=== PATIENT | male | born 1950 | race Asian ===

== ENCOUNTER 2023-06-24 09:36 | Emergency (ER) | payer MEDICARE ==
[~2023-06-24] VITALS: Ht 165.1 cm; Wt 75.0 kg
[2023-06-24 09:41] VITALS: TEMP 98.2
[2023-06-24] MEDS ORDERED: LISI-894 PO (09:43)
[2023-06-24] MEDS ORDERED: ASPI81TA87 PO (09:43)
[2023-06-24] MEDS ORDERED: VITAMIN D PO (09:43)
[2023-06-24] MEDS ORDERED: ATOR40TA28 PO (09:47)
[2023-06-24 14:02] LABS: APPEARANCE,URINE HAZY (CLEAR); BILIRUBIN,URINE NEGATIVE (NEGATIVE); COLOR,URINE YELLOW (YELLOW); GLUCOSE, URINE (UA) NEGATIVE (NEGATIVE); LEUKOCYTE ESTERASE ,URINE MODERATE (NEGATIVE); NITRATE,URINE NEGATIVE (NEGATIVE); OCCULT BLOOD,URINE LARGE (NEGATIVE); PROTEIN,URINE 300-600,SEE CONFIRM mg/dL (NEGATIVE); SPECIFIC GRAVITIY, URINE 1.026 (1.003-1.030)
[2023-06-24 14:20] LABS: SULFOSALICYLIC ACID,URINE 3+ (Negative)
[2023-06-24 14:22] LABS: BACTERIA,URINE Few /HPF (None Seen); SQUAMOUS EPITHELIAL CELL,UR Few /LPF (None Seen)
[2023-06-24] MEDS ORDERED: ASPI-1444 PO (14:40)
[2023-06-24] MEDS ORDERED: LISI1TAB53 PO (14:40)
[2023-06-24] MEDS ORDERED: ROSU40TA70 PO (14:40)
[2023-06-24] MEDS ORDERED: TAMS0.4C34 PO (14:40)
[2023-06-24] MEDS ORDERED: CHOL200059 PO (14:40)
[2023-06-24] MEDS ORDERED: CEPH-558 PO (14:41)
[2023-06-24] MEDS ORDERED: CEPHALEXIN MONOHYDRATE 500 MG CAPSULE PO ONE (14:45)
[2023-06-24 15:11] VITALS: BP 118/68; PULSE 77; RESP 18
== END 2023-06-24 15:23 | disposition home or self-care (01) ==
LOC: EMS 09:38
DX: N39.0 Urinary tract infection, site not specified (principal); Z98.890 Other specified postprocedural states
CPT/HCPCS: 74018; 74176; 81001; 81002; 87086; 87186; 99284